=== PATIENT | male | born 1970 | race African-American/Black ===

== ENCOUNTER 2019-03-04 13:16 | Inpatient (IN) | payer OTHER, MEDICAID ==
[~2019-03-04] VITALS: Ht 162.6 cm; Wt 59.1 kg
[2019-03-04 17:53] LABS: CHLORIDE 122 mEq/L (98-107)
[2019-03-04 18:01] LABS: BASOPHILS % 0.5 % (0.0-2.0); HEMATOCRIT. 39.1 % (42.0-52.0); LYMPHOCYTES % 12.3 % (20.0-50.0); MEAN CORPUSCULAR HEMOGLOBIN 30.5 pg (28.0-32.0); MEAN CORPUSCULAR VOLUME 91.9 fL (80.0-94.0); MEAN PLATELET VOLUME 9.8 fl (7.4-10.4); MONOCYTES % 5.7 % (2.0-8.0); NEUTROPHILS % 79.5 % (40.0-76.0); PLATELET 250 x1000/uL (130-400); RED BLOOD CELL COUNT 4.26 mill/uL (4.7-6.1); RED CELL DISTRIBUTION WIDTH 14.4 % (11.6-14.6)
[2019-03-04] MEDS ORDERED: CALCIUM GLUCONATE 100MG/ML 10ML VIAL IV ONE (18:30)
[2019-03-04] MEDS ORDERED: POTASSIUM CHLORIDE INJ 40 MEQ in DEXT 5% WATER 250 ML IV NR (18:30)
[2019-03-04] MEDS ORDERED: POTASSIUM CHLORIDE 20MEQ TABLET SR PO ONE (18:30)
[2019-03-04 18:54] LABS: PHOSPHORUS 2.5 mg/dL (2.5-4.9)
[2019-03-04 18:58] LABS: T4 FREE 0.81 ng/dL (0.76-1.46)
[2019-03-04] MEDS ORDERED: CALCIUM GLUCONATE 1000MG in DEXTROSE 5% WATER 50ML IV NR (19:00)
[2019-03-04] MEDS ORDERED: MAGNESIUM 2 G PREMIX 50 ML IV ONE (19:15)
[2019-03-04] MEDS ORDERED: DEXTROSE 50% WATER 50ML SYRINGE IV ONE (19:30)
[2019-03-04] MEDS ORDERED: SODIUM CHLORIDE 0.9% 1,000 ML IV ONE (20:30)
[2019-03-05] MEDS ORDERED: DEXTROSE 50% WATER 50ML SYRINGE IV NR (00:30)
[2019-03-05 05:57] LABS: BASOPHILS % 0.6 % (0.0-2.0); EOSINOPHILS % 4.8 % (0.0-5.0); HEMATOCRIT. 39.7 % (42.0-52.0); HEMOGLOBIN. 12.9 g/dL (14.0-18.0); LYMPHOCYTES % 14.8 % (20.0-50.0); MEAN CORPUSCULAR HEMOGLOBIN 29.8 pg (28.0-32.0); MEAN CORPUSCULAR VOLUME 92.1 fL (80.0-94.0); NEUTROPHILS % 72.8 % (40.0-76.0); PLATELET 181 x1000/uL (130-400); RED BLOOD CELL COUNT 4.31 mill/uL (4.7-6.1)
[2019-03-05 06:00] LABS: CHLORIDE 111 mEq/L (98-107)
[2019-03-05 06:07] LABS: PHOSPHORUS 2.8 mg/dL (2.5-4.9)
[2019-03-05 08:38] VITALS: BP 116/73
[2019-03-05] MEDS ORDERED: ONDANSETRON HCL 4MG/2ML INJ IV PRN (08:45)
[2019-03-05] MEDS ORDERED: ACETAMINOPHEN 325MG TABLET PO PRN (08:45)
[2019-03-05 10:04] VITALS: BP 116/73
[2019-03-05 12:00] VITALS: BP 107/76
[2019-03-05] MEDS: OMEPRAZOLE 20MG CAPSULE EXTENDED RELEASE PO SCH (12:29)
[2019-03-05] MEDS ORDERED: DIGOXIN 250MCG TABLET PO NR (15:30)
[2019-03-05 16:00] VITALS: BP 103/72
[2019-03-05 20:04] VITALS: BP 101/74
[2019-03-05] MEDS: DILTIAZEM HCL 30MG TABLET PO SCH (21:33)
[2019-03-06] VITALS: BP 107/71
[2019-03-06 04:00] VITALS: BP 109/75
[2019-03-06] MEDS: DILTIAZEM HCL 30MG TABLET PO SCH ×3 (06:43→21:35)
[2019-03-06] MEDS: OMEPRAZOLE 20MG CAPSULE EXTENDED RELEASE PO SCH (06:43)
[2019-03-06 07:39] LABS: CHLORIDE 104 mEq/L (98-107)
[2019-03-06 07:40] LABS: BASOPHILS % 0.6 % (0.0-2.0); EOSINOPHILS % 4.7 % (0.0-5.0); HEMATOCRIT. 43.3 % (42.0-52.0); HEMOGLOBIN. 14.3 g/dL (14.0-18.0); LYMPHOCYTES % 12.9 % (20.0-50.0); MEAN CORPUSCULAR HEMOGLOBIN 30.3 pg (28.0-32.0); MEAN CORPUSCULAR VOLUME 91.6 fL (80.0-94.0); MEAN PLATELET VOLUME 9.5 fl (7.4-10.4); NEUTROPHILS % 75.8 % (40.0-76.0); PLATELET 219 x1000/uL (130-400); RED BLOOD CELL COUNT 4.73 mill/uL (4.7-6.1); RED CELL DISTRIBUTION WIDTH 14.2 % (11.6-14.6)
[2019-03-06 08:00] VITALS: BP 101/72
[2019-03-06 12:00] VITALS: BP 104/74
[2019-03-06 13:23] LABS: *AMPHETAMINES SCREEN URINE NEGATIVE (NEGATIVE); *BARBITURATES SCREEN URINE NEGATIVE (NEGATIVE); *BENZODIAZEPINES SCREEN URINE NEGATIVE (NEGATIVE); *COCAINE SCREEN URINE NEGATIVE (NEGATIVE); METHADONE URINE SCREEN NEGATIVE (NEGATIVE); OPIATES URINE SCREEN PRESUMTIVE POSITIVE (NEGATIVE)
[2019-03-06 13:24] LABS: CANNABINOID URINE SCREEN PRESUMTIVE POSITIVE (NEGATIVE); PHENCYCLIDINE URINE SCREEN NEGATIVE (NEGATIVE)
[2019-03-06] MEDS: TRAMADOL 50MG TABLET PO PRN (14:43)
[2019-03-06 16:00] VITALS: BP 107/72
[2019-03-06] MEDS ORDERED: DIGOXIN 250MCG TABLET PO NR (17:30)
[2019-03-06 20:00] VITALS: BP 112/67
[2019-03-07] VITALS: BP 119/75
[2019-03-07 04:00] VITALS: BP 98/61
[2019-03-07] MEDS: TRAMADOL 50MG TABLET PO PRN (04:24)
[2019-03-07] MEDS: OMEPRAZOLE 20MG CAPSULE EXTENDED RELEASE PO SCH (06:23)
[2019-03-07] MEDS: DILTIAZEM HCL 30MG TABLET PO SCH (06:23)
[2019-03-07 06:24] VITALS: BP 114/79
[2019-03-07 06:54] LABS: BASOPHILS % 0.5 % (0.0-2.0); EOSINOPHILS % 5.4 % (0.0-5.0); HEMATOCRIT. 43.3 % (42.0-52.0); HEMOGLOBIN. 14.1 g/dL (14.0-18.0); LYMPHOCYTES % 16.2 % (20.0-50.0); MEAN PLATELET VOLUME 9.5 fl (7.4-10.4); MONOCYTES % 8.3 % (2.0-8.0); NEUTROPHILS % 69.6 % (40.0-76.0); PLATELET 215 x1000/uL (130-400); RED BLOOD CELL COUNT 4.71 mill/uL (4.7-6.1); RED CELL DISTRIBUTION WIDTH 14.2 % (11.6-14.6)
[2019-03-07 07:03] LABS: CHLORIDE 101 mEq/L (98-107)
[2019-03-07 08:00] VITALS: BP 121/78
[2019-03-07] MEDS ORDERED: PANTOT AC/MIN OIL/PET HY-PHL OINT (AQUAPHOR) TOP PRN (09:00)
[2019-03-07] MEDS ORDERED: ASPIRIN 325MG EC TABLET PO SCH (10:30)
[2019-03-07] MEDS ORDERED: DILTIAZEM HCL 120MG CAPSULE CD 24HR PO SCH (10:30)
[2019-03-07] MEDS ORDERED: ASPI325T85 MT (10:42)
[2019-03-07] MEDS ORDERED: DILT120C88 MT (10:42)
[2019-03-07] MEDS ORDERED: AMIO100T4 MT (10:42)
[2019-03-07] MEDS ORDERED: ATOR10TA MT (10:42)
[2019-03-07] MEDS ORDERED: DIGO125T82 MT (10:42)
[2019-03-07 12:00] VITALS: BP 108/73
[2019-03-07 13:18] VITALS: BP 108/73
[2019-03-07] MEDS ORDERED: DIGOXIN 500MCG/2ML AMP IV SCH ×2 (18:00)
[2019-03-07] MEDS ORDERED: AMIODARONE HCL 200 MG TABLET PO SCH (21:00)
== END 2019-03-07 15:40 | disposition home or self-care (01) | DRG 48 ==
LOC: ER 13:24 → 5WST 19:20 → ENRESERV 03-05 08:07
PROVIDERS: ADMIT Internal Medicine; ATTEND Internal Medicine
DX: G90.8 Other disorders of autonomic nervous system (principal); E43 Unspecified severe protein-calorie malnutrition; E87.8 Other disorders of electrolyte and fluid balance, not elsewhere classified; D64.9 Anemia, unspecified; I47.1 Supraventricular tachycardia; F12.90 Cannabis use, unspecified, uncomplicated; I48.0 Paroxysmal atrial fibrillation; E83.51 Hypocalcemia; E87.1 Hypo-osmolality and hyponatremia; E87.6 Hypokalemia; F17.210 Nicotine dependence, cigarettes, uncomplicated; I48.92 Unspecified atrial flutter; Z87.11 Personal history of peptic ulcer disease; Z68.22 Body mass index [BMI] 22.0-22.9, adult
CPT/HCPCS: 36415; 71045; 71101; 80048; 80061; 80305; 82962; 83735; 83880; 83930; 84100; 84439; 84443; 84484; 93005; 93306; 99285; C1893; J0610; J1642; J3475; J3480; J7030; J7060

== ENCOUNTER 2019-04-01 13:45 | Inpatient (IN) | payer MEDICAID, OTHER ==
[~2019-04-01] VITALS: Ht 162.6 cm; Wt 65.8 kg
[~2019-04-01 13:45] MED LIST: AMIO100T4 MT; ASPI325T85 MT; ATOR10TA MT; DIGO125T80 MT; DILT120C88 MT
[2019-04-01] MEDS ORDERED: ASPIRIN 81MG TABLET PO ONE (19:30)
[2019-04-01 19:45] LABS: BASOPHILS % 0.6 % (0.0-2.0); EOSINOPHILS % 4.1 % (0.0-5.0); HEMATOCRIT. 40.8 % (42.0-52.0); HEMOGLOBIN. 13.4 g/dL (14.0-18.0); LYMPHOCYTES % 22.9 % (20.0-50.0); MEAN CORPUSCULAR HEMOGLOBIN 29.5 pg (28.0-32.0); MEAN CORPUSCULAR VOLUME 89.9 fL (80.0-94.0); MEAN PLATELET VOLUME 7.8 fl (7.4-10.4); MONOCYTES % 6.1 % (2.0-8.0); NEUTROPHILS % 66.3 % (40.0-76.0); PLATELET 228 x1000/uL (130-400); RED BLOOD CELL COUNT 4.54 mill/uL (4.7-6.1); RED CELL DISTRIBUTION WIDTH 13.4 % (11.6-14.6)
[2019-04-01 19:49] LABS: CHLORIDE 106 mEq/L (98-107)
[2019-04-01 19:53] LABS: PARTIAL THROMBOPLASTIN TIME 27.1 sec (23.4-31.0); PROTHROMBIN TIME 10.1 sec (9.6-11.0)
[2019-04-01 19:54] LABS: ETHANOL BLOOD < 10 mg/dL
[2019-04-01 23:05] LABS: CLARITY URINE CLEAR (CLEAR); COLOR URINE YELLOW (YELLOW); KETONES URINE NEGATIVE (NEGATIVE); LEUKOCYTE ESTERASE URINE TRACE (NEGATIVE); NITRITE URINE NEGATIVE (NEGATIVE); OCCULT BLOOD URINE TRACE (NEGATIVE); PH URINE 6.5 (4.5-8.0); PROTEIN URINE NEGATIVE (NEGATIVE); SPECIFIC GRAVITY URINE 1.024 (1.005-1.030); UROBILINOGEN URINE 0.2 E.U./dL (0.2-1.0)
[2019-04-01] MEDS ORDERED: MORPHINE SULFATE 2 MG/ML CPJ (NOT FOR IM USE) IV PRN (23:15)
[2019-04-01 23:17] LABS: *AMPHETAMINES SCREEN URINE NEGATIVE (NEGATIVE); *BARBITURATES SCREEN URINE NEGATIVE (NEGATIVE); *BENZODIAZEPINES SCREEN URINE NEGATIVE (NEGATIVE); *COCAINE SCREEN URINE NEGATIVE (NEGATIVE); METHADONE URINE SCREEN NEGATIVE (NEGATIVE); OPIATES URINE SCREEN NEGATIVE (NEGATIVE)
[2019-04-01 23:18] LABS: CANNABINOID URINE SCREEN PRESUMTIVE POSITIVE (NEGATIVE); PHENCYCLIDINE URINE SCREEN NEGATIVE (NEGATIVE)
[2019-04-01] MEDS: ATORVASTATIN CALCIUM 10MG TABLET PO SCH (23:28)
[2019-04-01] MEDS: AMIODARONE HCL 200 MG TABLET PO SCH (23:29)
[2019-04-02] MEDS ORDERED: CEFTRIAXONE 1 G PREMIX 50 ML IV ONE (00:15)
[2019-04-02] MEDS: ASPIRIN 325MG EC TABLET PO SCH (09:00)
[2019-04-02] MEDS: DILTIAZEM HCL 120MG CAPSULE CD 24HR PO SCH (09:00)
[2019-04-02] MEDS: AMIODARONE HCL 200 MG TABLET PO SCH ×2 (09:00→18:08)
[2019-04-02] MEDS ORDERED: ONDANSETRON HCL 4MG/2ML INJ IV PRN (09:30)
[2019-04-02] MEDS ORDERED: ACETAMINOPHEN 325MG TABLET PO PRN (09:30)
[2019-04-02] MEDS: ENOXAPARIN 40MG/0.4ML SYR SUBCUT SCH (10:00)
[2019-04-02 10:30] VITALS: BP 123/76
[2019-04-02 12:00] VITALS: BP 117/69
[2019-04-02] MEDS ORDERED: DIGOXIN 125MCG TABLET PO SCH (18:00)
[2019-04-02 20:00] VITALS: BP 122/77
[2019-04-02] MEDS: ATORVASTATIN CALCIUM 10MG TABLET PO SCH (21:42)
[2019-04-02] MEDS: HYDROCORTISONE 1% OINT 28.35GM TOP SCH (21:42)
[2019-04-03] VITALS: BP 118/74
[2019-04-03 04:00] VITALS: BP 124/88
[2019-04-03 07:13] LABS: CHLORIDE 100 mEq/L (98-107)
[2019-04-03 07:17] LABS: BASOPHILS % 0.6 % (0.0-2.0); EOSINOPHILS % 3.8 % (0.0-5.0); LYMPHOCYTES % 15.3 % (20.0-50.0); MEAN CORPUSCULAR HEMOGLOBIN 29.4 pg (28.0-32.0); MEAN CORPUSCULAR VOLUME 90.1 fL (80.0-94.0); MEAN PLATELET VOLUME 8.6 fl (7.4-10.4); MONOCYTES % 6.3 % (2.0-8.0); PLATELET 271 x1000/uL (130-400); RED BLOOD CELL COUNT 5.28 mill/uL (4.7-6.1); RED CELL DISTRIBUTION WIDTH 13.4 % (11.6-14.6)
[2019-04-03 07:24] LABS: HEMATOCRIT. 47.6 % (42.0-52.0); HEMOGLOBIN. 15.5 g/dL (14.0-18.0)
[2019-04-03 08:00] VITALS: BP 126/85
[2019-04-03] MEDS: DILTIAZEM HCL 120MG CAPSULE CD 24HR PO SCH (08:24)
[2019-04-03] MEDS: AMIODARONE HCL 200 MG TABLET PO SCH (08:25)
[2019-04-03] MEDS: ASPIRIN 325MG EC TABLET PO SCH (08:25)
[2019-04-03] MEDS: ENOXAPARIN 40MG/0.4ML SYR SUBCUT SCH (08:26)
[2019-04-03] MEDS: HYDROCORTISONE 1% OINT 28.35GM TOP SCH (08:27)
[2019-04-03 12:00] VITALS: BP 120/82
[2019-04-03 15:14] VITALS: BP 120/82
== END 2019-04-03 16:04 | disposition home or self-care (01) | DRG 203 ==
LOC: ER 17:00 → 7WST 21:04 → EDBEDREQTM 21:08 → EDBEDREQ 21:08 → ENRESERV 04-02 08:30
PROVIDERS: ADMIT Internal Medicine; ATTEND Internal Medicine
DX: M94.0 Chondrocostal junction syndrome [Tietze] (principal); I48.92 Unspecified atrial flutter; I50.9 Heart failure, unspecified; E78.00 Pure hypercholesterolemia, unspecified; F12.90 Cannabis use, unspecified, uncomplicated; F17.210 Nicotine dependence, cigarettes, uncomplicated; J44.9 Chronic obstructive pulmonary disease, unspecified; Z87.11 Personal history of peptic ulcer disease; Z79.82 Long term (current) use of aspirin; Z79.899 Other long term (current) drug therapy; Z91.018 Allergy to other foods
CPT/HCPCS: 36415; 71045; 80048; 80053; 80162; 80305; 80320; 81003; 83880; 84484; 85025; 93005; 99285; J0696; J1650; G0480

== ENCOUNTER 2023-08-11 18:44 | Emergency (ER) | payer MEDICAID, OTHER ==
[~2023-08-11] VITALS: Ht 170.2 cm; Wt 68.0 kg
[~2023-08-11 18:44] MED LIST changes: -AMIO100T4 MT; +ASPI-867 MT; -ASPI325T85 MT; -DIGO125T80 MT; -DILT120C88 MT; +DILT30TA37 PO
[2023-08-11 18:56] VITALS: O2SAT 100
[2023-08-11] MEDS ORDERED: NAPR-681 MT (20:33)
[2023-08-11] MEDS ORDERED: TRIA60LO12 TP (20:33)
[2023-08-11] MEDS ORDERED: LIDO1ADH71 TOP (20:33)
[2023-08-11] MEDS: KETOROLAC 30MG/ML VIAL IM ONE (21:10)
[2023-08-11 21:11] VITALS: BP 111/84; PULSE 68; RESP 16; TEMP 98
== END 2023-08-11 21:15 | disposition home or self-care (01) ==
LOC: ER 18:44
DX: M19.011 Primary osteoarthritis, right shoulder (principal); L40.9 Psoriasis, unspecified; E78.00 Pure hypercholesterolemia, unspecified; I10 Essential (primary) hypertension; I49.9 Cardiac arrhythmia, unspecified; Z79.899 Other long term (current) drug therapy
CPT/HCPCS: 73030; 99283

== ENCOUNTER 2024-12-07 09:25 | Emergency (ER) | payer MEDICAID, OTHER ==
[~2024-12-07] VITALS: Ht 172.7 cm; Wt 76.0 kg
[~2024-12-07 09:25] MED LIST changes: +LIDO1ADH71 TOP; +NAPR-681 MT; +TRIA60LO12 TP
[2024-12-07 09:52] VITALS: O2SAT 100
[2024-12-07] MEDS: KETOROLAC 15MG/ML VIAL IM ONE (10:22)
[2024-12-07] MEDS: LIDOCAINE 5% PATCH TOP SCH (10:22)
[2024-12-07] MEDS: ACETAMINOPHEN 325MG TABLET PO ONE (10:22)
[2024-12-07] MEDS ORDERED: LIDO-53 TP (10:39)
[2024-12-07] MEDS ORDERED: NAPR-681 MT (10:39)
[2024-12-07] MEDS ORDERED: METH4TAB95 MT (10:39)
[2024-12-07 11:00] VITALS: BP 140/94; PULSE 68; RESP 18; TEMP 37; O2SAT 99
== END 2024-12-07 11:02 | disposition home or self-care (01) ==
LOC: ER 09:25
DX: M54.50 Low back pain, unspecified (principal); E78.00 Pure hypercholesterolemia, unspecified; I10 Essential (primary) hypertension; Z79.899 Other long term (current) drug therapy; Z91.018 Allergy to other foods; Z91.013 Allergy to seafood; Z98.890 Other specified postprocedural states
CPT/HCPCS: 96372; 99283; J1885; Z7610